=== PATIENT | male | born 2000 | race Caucasian/White ===

== ENCOUNTER 2022-12-30 21:31 | Emergency (ER) | payer MEDICAID, OTHER ==
[~2022-12-30] VITALS: Ht 172.7 cm; Wt 100.0 kg
[2022-12-31] MEDS ORDERED: FLUORESCEIN SODIUM 1 MG STRIP OU ONE (00:15)
[2022-12-31] MEDS ORDERED: PROPARACAINE HCL 0.5% 15 ML OPHTHALMIC SOLUTION OU ONE (00:15)
[2022-12-31] MEDS ORDERED: ERYT3.5O8 OD (01:21)
[2022-12-31 01:25] VITALS: BP 131/82
== END 2022-12-31 02:24 | disposition home or self-care (01) ==
LOC: EMS 21:37
DX: T15.11XA Foreign body in conjunctival sac, right eye, initial encounter (principal)
CPT/HCPCS: 99283; 99284